=== PATIENT | female | born 1985 | race Caucasian/White ===

== ENCOUNTER 2018-10-21 07:19 | Inpatient (IN) | payer MEDICAID ==
[~2018-10-21] VITALS: Ht 170.2 cm; Wt 81.8 kg
[2018-10-21] MEDS ORDERED: MISOPROSTOL 200 MCG TABLET ONE (07:33)
[2018-10-21] MEDS ORDERED: OXYTOCIN 30U/ 0.9% NaCL 500ML 500 ML ONE ×2 (07:33→11:04)
[2018-10-21] MEDS ORDERED: LIDOCAINE 1%, 10ML ONE ×2 (07:34→09:17)
[2018-10-21] MEDS ORDERED: NEWBORN KIT ONE (07:40)
[2018-10-21] MEDS ORDERED: LACTATED RINGERS 1,000 ML IV SCH (07:42)
[2018-10-21] MEDS ORDERED: OXYTOCIN 30U/ 0.9% NaCL 500ML 500 ML IV ONE (07:42)
[2018-10-21] MEDS ORDERED: D5%-LACTATED RINGERS 1,000 ML IV SCH (07:42)
[2018-10-21] MEDS ORDERED: ONDANSETRON 2MG/ML, 2ML IVPush PRN (08:00)
[2018-10-21] MEDS ORDERED: CALCIUM CARBONATE 500 MG TAB.CHEW PO PRN (08:00)
[2018-10-21] MEDS ORDERED: FENTANYL PF 100 MCG/2ML IV PRN (08:00)
[2018-10-21] MEDS ORDERED: FENTANYL PF 100 MCG/2ML ONE ×2 (08:06→09:17)
[2018-10-21] MEDS: FENTANYL PF 100 MCG/2ML IVPush PRN ×2 (08:07→09:20)
[2018-10-21 08:10] VITALS: BP 133/79
[2018-10-21 08:16] LABS: BASOPHILS # (AUTO) 0.05 x10^3/uL (0-0.1); BASOPHILS % (AUTO) 0 % (0-1); EOSINOPHILS # (AUTO) 0.14 x10^3/uL (0-0.4); EOSINOPHILS % (AUTO) 1 % (1-7); LYMPHOCYTES # (AUTO) 2.14 x10^3/uL (1-3.4); LYMPHOCYTES % (AUTO) 14 % (22-44); MD NO; MEAN CORPUSCULAR HEMOGLOBIN 30.6 pg (27.0-34.8); MEAN CORPUSCULAR HGB CONC 33.2 g/dL (32.4-35.8); MEAN PLATELET VOLUME 8.9 fL (7.4-10.4); MONOCYTES # (AUTO) 1.04 x10^3/uL (0.2-0.8); MONOCYTES % (AUTO) 7 % (2-9); NEUTROPHILS # (AUTO) 11.43 x10^3/uL (1.8-6.8); NEUTROPHILS % (AUTO) 77 % (42-75); PLATELET COUNT 248 x10^3/uL (130-400); RED BLOOD COUNT 3.98 x10^6/uL (3.82-5.3); RED CELL DISTRIBUTION WIDTH 13.9 % (9.6-15.2)
[2018-10-21 08:24] LABS: MICROSCOPIC INDICATED
[2018-10-21] MEDS ORDERED: PREN-3 PO (08:26)
[2018-10-21 08:31] LABS: AMPHETAMINE SCREEN, URINE Positive (Negative); BARBITURATE SCREEN, URINE Negative (Negative); BENZODIAZEPINE SCREEN, URINE Negative (Negative); CANNABINOID SCREEN, URINE Positive (Negative); COCAINE SCREEN, URINE Negative (Negative); METHADONE SCREEN, URINE Negative (Negative); OPIATE SCREEN, URINE Negative (Negative)
[2018-10-21 11:10] VITALS: BP 138/90
[2018-10-21] MEDS: OXYTOCIN 30U/ 0.9% NaCL 500ML 500 ML IV SCH ×2 (11:15→22:19)
[2018-10-21] MEDS ORDERED: DIPH,PERTUSS(ACELL),TET VAC/PF NC IM-VACC PRN (12:30)
[2018-10-21] MEDS ORDERED: OXYcodone/APAP 5/325MG TABLET PO PRN ×2 (12:30)
[2018-10-21 13:53] VITALS: BP 130/67
[2018-10-21 16:00] VITALS: BP 128/78
[2018-10-21] MEDS: IBUPROFEN 600 MG TABLET PO PRN (16:28)
[2018-10-21 17:22] LABS: BASOPHILS # (AUTO) 0.04 x10^3/uL (0-0.1); BASOPHILS % (AUTO) 0 % (0-1); EOSINOPHILS % (AUTO) 1 % (1-7); LYMPHOCYTES # (AUTO) 1.75 x10^3/uL (1-3.4); LYMPHOCYTES % (AUTO) 13 % (22-44); MD NO; MEAN CORPUSCULAR HEMOGLOBIN 30.9 pg (27.0-34.8); MEAN CORPUSCULAR HGB CONC 33.5 g/dL (32.4-35.8); MEAN CORPUSCULAR VOLUME 92.1 fL (80-100); MEAN PLATELET VOLUME 8.8 fL (7.4-10.4); MONOCYTES # (AUTO) 0.74 x10^3/uL (0.2-0.8); MONOCYTES % (AUTO) 6 % (2-9); NEUTROPHILS # (AUTO) 10.51 x10^3/uL (1.8-6.8); NEUTROPHILS % (AUTO) 80 % (42-75); PLATELET COUNT 219 x10^3/uL (130-400)
[2018-10-21] MEDS ORDERED: ONDANSETRON 4 MG TABLET PO ONE (18:30)
[2018-10-21] MEDS: LACTATED RINGERS 1,000 ML IV SCH (18:30)
[2018-10-21 19:30] VITALS: BP 127/75
[2018-10-22] VITALS: BP 113/68
[2018-10-22] MEDS: IBUPROFEN 600 MG TABLET PO PRN ×2 (00:06→09:36)
[2018-10-22] MEDS: DOCUSATE 100 MG CAPSULE PO SCH ×3 (00:06→21:00)
[2018-10-22] MEDS: LACTATED RINGERS 1,000 ML IV SCH ×3 (02:30→18:30)
[2018-10-22 04:25] VITALS: BP 115/65
[2018-10-22] MEDS: OXYTOCIN 30U/ 0.9% NaCL 500ML 500 ML IV SCH ×2 (08:19→18:19)
[2018-10-22 08:30] VITALS: BP 135/84
[2018-10-22] MEDS ORDERED: PRENATAL VIT/IRON/FA 1 EACH TABLET PO SCH (09:00)
[2018-10-22 20:00] VITALS: BP 121/82
[2018-10-23 08:00] VITALS: BP 153/64
[2018-10-23] MEDS ORDERED: IBUP-1222 PO ×2 (09:31→09:36)
== END 2018-10-23 17:02 | disposition home or self-care (01) | DRG 807 ==
LOC: LDOP 07:19 → LDIP 07:58 → 2NW 12:27
PROVIDERS: ADMIT Obstetrics & Gynecology; ATTEND Obstetrics & Gynecology
PROC: 10E0XZZ Delivery of Products of Conception, External Approach (ICD-10-PCS; principal; 2018-10-21)
PROC: 0KQM0ZZ Repair Perineum Muscle, Open Approach (ICD-10-PCS; 2018-10-21)
DX: O70.1 Second degree perineal laceration during delivery (principal); Z37.0 Single live birth; Z3A.37 37 weeks gestation of pregnancy; Z91.040 Latex allergy status
CPT/HCPCS: 36415; 80307; 81001; 85025; 86592; 86762; 86850; 86900; 87340; 87806; 90715; G0378; J3010; G0475; J2590; J7120

== ENCOUNTER → 2021-01-26 | Outpatient (CLI) | payer MEDICAID ==
[~2021-01-26] MED LIST: IBUP-1222 PO; PREN-3 PO
== END | disposition home or self-care (01) ==
LOC: CFH 12:56
PROVIDERS: ATTEND Physician Assistant Medical
DX: N64.4 Mastodynia (principal)
CPT/HCPCS: 76642; 77062; 77066; G0279

== ENCOUNTER 2021-04-27 12:37 | Outpatient (CLI) | payer MEDICAID | END 2021-04-27 23:59 | disposition home or self-care (01) | LOC: STAR 12:37 | PROVIDERS: ATTEND Surgery | DX: Z20.822 Contact with and (suspected) exposure to COVID-19 (principal); K40.90 Unilateral inguinal hernia, without obstruction or gangrene, not specified as recurrent | CPT/HCPCS: U0003; U0005 ==

== ENCOUNTER 2021-05-01 12:01 | Day surgery (SDC) | payer MEDICAID ==
[~2021-05-01] VITALS: Ht 170.2 cm; Wt 95.9 kg
[2021-05-01] MEDS ORDERED: CHLORHEXIDINE 15 ML UDC PO ONE (12:30)
[2021-05-01] MEDS ORDERED: CHLORHEXIDINE 15 ML UDC ONE (12:30)
[2021-05-01] MEDS ORDERED: LACTATED RINGERS 1,000 ML IV SCH (12:30)
[2021-05-01 12:47] VITALS: BP 120/72
[2021-05-01 12:57] LABS: HCG UR SG 1.023 (1.003-1.030)
[2021-05-01] MEDS ORDERED: FENTANYL PF 250 MCG/5ML ONE (13:08)
[2021-05-01] MEDS ORDERED: MIDAZOLAM 1 MG/ML, 2ML ONE (13:08)
[2021-05-01] MEDS ORDERED: BUPIVACAINE/PF 0.5% ONE (13:35)
[2021-05-01] MEDS ORDERED: DEXAMETHASONE 4 MG/ML, 1ML ONE ×2 (13:43)
[2021-05-01] MEDS ORDERED: CEFAZOLIN 1,000 MG ONE ×2 (13:57→14:21)
[2021-05-01] MEDS ORDERED: KETOROLAC 30 MG/1 ML ONE (14:05)
[2021-05-01] MEDS ORDERED: ONDANSETRON 2MG/ML, 2ML ONE (14:20)
[2021-05-01] MEDS ORDERED: PROPOFOL 10 MG/ML, 20ML ONE (14:21)
[2021-05-01] MEDS ORDERED: ONDA4TAB7 PO (14:29)
[2021-05-01] MEDS ORDERED: HYDR-2214 PO (14:29)
[2021-05-01] MEDS ORDERED: KETOROLAC 30 MG/1 ML IVPush PRN (14:30)
[2021-05-01] MEDS ORDERED: HYDROcodone/APAP 5/325 TABLET PO PRN (14:30)
[2021-05-01] MEDS ORDERED: ENOXAPARIN 40 MG/0.4 ML SQ SCH (14:30)
[2021-05-01] MEDS ORDERED: morphine SULFATE 10 MG/ML, 1ML IVPush PRN (14:30)
[2021-05-01] MEDS ORDERED: OXYcodone 5 MG/5 ML ORAL.SOL UDC ONE (14:45)
[2021-05-01] MEDS ORDERED: FENTANYL PF 100 MCG/2ML ONE (14:45)
[2021-05-01] MEDS: FENTANYL PF 100 MCG/2ML IV PRN ×2 (14:48→14:53)
[2021-05-01] MEDS ORDERED: HYDROmorphone 1 MG/ML, 1ML INJ IVPush PRN (15:00)
[2021-05-01] MEDS ORDERED: PROMETHAZINE 25 MG/ML, 1ML IVPush PRN (15:00)
[2021-05-01] MEDS ORDERED: ONDANSETRON 2MG/ML, 2ML IVPush PRN (15:00)
[2021-05-01] MEDS ORDERED: LABETALOL 5MG/ML, 20ML IV PRN (15:00)
[2021-05-01] MEDS ORDERED: OXYcodone 5 MG/5 ML ORAL.SOL UDC PO PRN (15:00)
[2021-05-01] MEDS ORDERED: MEPERIDINE/PF 25MG/0.5ML IVPush PRN (15:00)
[2021-05-01] MEDS ORDERED: hydrALAzine 20 MG/ML, 1ML IV PRN (15:00)
== END 2021-05-01 16:30 | disposition home or self-care (01) ==
LOC: OUT 12:01
PROVIDERS: ATTEND Surgery
DX: K40.90 Unilateral inguinal hernia, without obstruction or gangrene, not specified as recurrent (principal); F17.210 Nicotine dependence, cigarettes, uncomplicated; F12.90 Cannabis use, unspecified, uncomplicated; Z91.040 Latex allergy status; Z72.89 Other problems related to lifestyle; Z79.899 Other long term (current) drug therapy
CPT/HCPCS: 49650; 81025; C1781; J0690; J1100; J1885; J2250; J2405; J2704; J3010; J7120; S2900